=== PATIENT | female | born 1985 | race American Indian/Alaskan Native ===

== ENCOUNTER 2017-09-05 11:35 | Emergency (ER) | payer OTHER ==
[2017-09-05 12:41] LABS: Bilirubin,Urine NEG (Negative); Blood,Urine NEG (Negative); Color,Urine Yellow (Yellow); Mucus,Urine 1+ /HPF; Urobilinogen,Urine < 2.0 mg/dL (<2.0)
[2017-09-05 12:51] LABS: Amphetamine Screen,Urine PRESUMPTIVE NEGATIVE; Benzodiazepines Screen,Urine PRESUMPTIVE NEGATIVE; Cannabinoid Screen,Urine PRESUMPTIVE NEGATIVE; Cocaine Screen,Urine PRESUMPTIVE NEGATIVE; Methadone Screen,Urine PRESUMPTIVE NEGATIVE; Opiate Screen,Urine PRESUMPTIVE NEGATIVE
[2017-09-05 12:55] LABS: BUN/Creatinine Ratio 14; Blood Urea Nitrogen 7 mg/dL (7-17); Calcium 9.5 mg/dL (8.4-10.2); Hemolysis Index 8
[2017-09-05 12:56] LABS: Basophils % (Auto) 0.7 % (0.0-1.8); Eosinophils % (Auto) 0.2 % (0.0-4.3); Hematocrit 44.4 % (30.3-42.9); Hemoglobin 15.1 gm/dl (10.1-14.3); Lymphocytes % (Auto) 16.5 % (13.4-35.0); Mean Corpuscular HGB Conc 34 % (30-34); Mean Corpuscular Hemoglobin 35 pg (28-32); Mean Corpuscular Volume 102 fl (79-97); Monocytes # (Auto) 0.4 K/mm3 (0.0-0.8); Monocytes % (Auto) 6.4 % (0.0-7.3); Platelet Count 202 K/mm3 (140-440); Red Blood Count 4.34 M/mm3 (3.65-5.03); Red Cell Distribution Width 15.7 % (13.2-15.2)
[2017-09-05] MEDS ORDERED: CATAPRES PO ONE (14:18)
[2017-09-05] MEDS ORDERED: ATIVAN PO ONE (14:18)
[2017-09-05 15:32] VITALS: BP 145/106
[2017-09-05] MEDS ORDERED: PROCARDIA XL PO ONE (15:49)
--- NOTE | 2017-09-05 16:52 | Emergency Department Report ---
HPI - General Chief Complaint: Alcohol Time Seen by Provider: 09/05/17 14:18 - HPI HPI: 32-year-old female, with history of alcoholism, presents to ED for medical clearance. She presented to treatment for alcoholism at an outpatient facility, her blood pressure was found to be severely elevated. She denies any headache, nausea, chest pain, shortness of breath, dizziness. She states that she had elevation of blood pressure of a similar manner about 2 years ago, but did nothing about it. ED Past Medical Hx - Past Medical History Previous Medical History?: No Hx Hypertension: No Hx CVA: No - Surgical History Past Surgical History?: No - Social History Smoking Status: Current Every Day Smoker Substance Use Type: Alcohol - Medications Home Medications: Home Medications Medication Instructions Recorded Confirmed Last Taken Type NIFEdipine XL [Procardia Xl] 30 mg PO QDAY #30 tablet 09/05/17 Unknown Rx ED Review of Systems ROS: Stated complaint: ABNORMAL VITAL SIGNS Other details as noted in HPI Constitutional: no symptoms reported Respiratory: denies: cough, orthopnea Cardiovascular: denies: chest pain, palpitations, dyspnea on exertion Physical Exam - Physical Exam Vital Signs: Vital Signs 09/05/17 09/05/17 09/05/17 09:52 10:00 10:16 Temperature Pulse Rate Respiratory Rate Blood Pressure O2 Sat by Pulse 100 98 91 Oximetry 09/05/17 09/05/17 09/05/17 10:30 10:46 11:00 Temperature Pulse Rate Respiratory Rate Blood Pressure O2 Sat by Pulse 97 96 90 Oximetry 09/05/17 09/05/17 09/05/17 11:40 12:38 12:45 Temperature 97.2 F L Pulse Rate 154 H Respiratory 18 Rate Blood Pressure 186/122 175/106 O2 Sat by Pulse 97 85 97 Oximetry 09/05/17 09/05/17 09/05/17 13:00 13:15 13:31 Temperature Pulse Rate Respiratory Rate Blood Pressure 167/112 161/105 176/104 O2 Sat by Pulse 98 97 95 Oximetry 09/05/17 09/05/17 09/05/17 13:45 14:00 14:15 Temperature Pulse Rate Respiratory Rate Blood Pressure 163/106 173/111 165/111 O2 Sat by Pulse 95 97 Oximetry 09/05/17 09/05/17 09/05/17 14:30 14:45 15:00 Temperature Pulse Rate Respiratory Rate Blood Pressure 165/107 160/111 159/107 O2 Sat by Pulse 98 98 Oximetry 09/05/17 15:15 Temperature Pulse Rate Respiratory Rate Blood Pressure 145/106 O2 Sat by Pulse 98 Oximetry Physical Exam: - Physical Exam Physical Exam: - General Limitations: No Limitations General appearance: alert, in no apparent distress, obese - Head Head exam: Present: atraumatic, normocephalic - Eye Eye exam: Present: normal appearance - ENT ENT exam: Present: mucous membranes moist - Neck Neck exam: Present: normal inspection - Respiratory Respiratory exam: Present: normal lung sounds bilaterally. Absent: respiratory distress - Cardiovascular Cardiovascular Exam: Present: normal rhythm, tachycardia. Absent: systolic murmur, diastolic murmur, rubs, gallop - GI/Abdominal GI/Abdominal exam: Present: soft, normal bowel sounds - Extremities Exam Extremities exam: Present: normal inspection - Back Exam Back exam: Present: normal inspection - Neurological Exam Neurological exam: Present: alert, oriented X3 - Psychiatric Psychiatric exam: normal affect and mood - Skin Skin exam: Present: warm, dry, intact, normal color. Absent: rash ED Course Vital Signs 09/05/17 09/05/17 09/05/17 09:52 10:00 10:16 Temperature Pulse Rate Respiratory Rate Blood Pressure O2 Sat by Pulse 100 98 91 Oximetry 09/05/17 09/05/17 09/05/17 10:30 10:46 11:00 Temperature Pulse Rate Respiratory Rate Blood Pressure O2 Sat by Pulse 97 96 90 Oximetry 09/05/17 09/05/17 09/05/17 11:40 12:38 12:45 Temperature 97.2 F L Pulse Rate 154 H Respiratory 18 Rate Blood Pressure 186/122 175/106 O2 Sat by Pulse 97 85 97 Oximetry 09/05/17 09/05/17 09/05/17 13:00 13:15 13:31 Temperature Pulse Rate Respiratory Rate Blood Pressure 167/112 161/105 176/104 O2 Sat by Pulse 98 97 95 Oximetry 09/05/17 09/05/17 09/05/17 13:45 14:00 14:15 Temperature Pulse Rate Respiratory Rate Blood Pressure 163/106 173/111 165/111 O2 Sat by Pulse 95 97 Oximetry 09/05/17 09/05/17 09/05/17 14:30 14:45 15:00 Temperature Pulse Rate Respiratory Rate Blood Pressure 165/107 160/111 159/107 O2 Sat by Pulse 98 98 Oximetry 09/05/17 15:15 Temperature Pulse Rate Respiratory Rate Blood Pressure 145/106 O2 Sat by Pulse 98 Oximetry ED Medical Decision Making - Lab Data Result diagrams: 09/05/17 12:10 09/05/17 12:10 Critical care attestation.: If time is entered above; I have spent that time in minutes in the direct care of this critically ill patient, excluding procedure time. ED Disposition Clinical Impression: Alcohol abuse, Medical clearance for psychiatric admission Hypertension Qualifiers: Hypertension type: essential hypertension Qualified Code(s): I10 - Essential ( primary) hypertension Disposition: - TO HOME OR SELFCARE Is pt being admited?: No Does the pt Need Aspirin: No Condition: Stable Instructions: Hypertension (ED) Prescriptions: NIFEdipine XL [Procardia Xl] 30 mg PO QDAY #30 tablet Referrals: PRIMARY CARE, [Primary Care Provider] - 3-5 Days
== END 2017-09-05 19:33 | disposition home or self-care (01) ==
LOC: ED 11:35
DX: F10.10 Alcohol abuse, uncomplicated (principal); I10 Essential (primary) hypertension; F17.200 Nicotine dependence, unspecified, uncomplicated
CPT/HCPCS: 36415; 80048; 80307; 81001; 84703; 85025; 93005; 93010; 99283; G0480; 80320